=== PATIENT | female | born 1965 | race African-American/Black ===

== ENCOUNTER 2016-12-22 21:41 | Emergency (ER) | payer SELFPAY ==
[~2016-12-22] VITALS: Ht 160 cm; Wt 79.4 kg
[2016-12-22 22:29] LABS: BILIRUBIN,URINE NEGATIVE (NEG); GLUCOSE,URINE NEGATIVE (NEG); NITRITE,URINE NEGATIVE (NEG); PH,URINE 5.5; PROTEIN,URINE NEGATIVE (NEG-TRACE); UROBILINOGEN,URINE 0.2 mg/dL (0.2 mg/dL)
[2016-12-22] MEDS ORDERED: ONDANSETRON PF 4 MG/2 ML VIAL. IV ONE (22:30)
[2016-12-22] MEDS ORDERED: IV NORMAL SALINE 1000ML BAG 1,000 ML IV SCH (22:30)
[2016-12-22] MEDS: fentaNYL PF VIAL 100 MCG/2 ML VIAL IV PRN ×2 (22:30→23:17)
[2016-12-22] MEDS ORDERED: FAMOTIDINE 20 MG/2 ML VIAL IVP ONE (22:30)
[2016-12-22 22:36] LABS: BACTERIA,URINE FEW /HPF (0-FEW); RBC,URINE OCC /HPF (0-2); SQUAMOUS EPITHELIAL CELL,UR MOD /LPF
[2016-12-22 22:37] LABS: BASO # 0.1 x10^3/uL (0.0-0.2); BASO % 1 % (0-3); EOS % 3 % (0-3); LYMPH # 5.2 x10^3/uL (1.0-4.8); LYMPH % 41 % (24-48); MEAN CORPUSCULAR HEMOGLOBIN 29 pg (25-35); MEAN CORPUSCULAR HGB CONC 33 g/dL (31-37); MEAN CORPUSCULAR VOLUME 88 fL (79-100); MONO % 9 % (0-9); NEUT % 46 % (31-73); PLATELET COUNT 459 x10^3/uL (140-400); RED BLOOD COUNT 4.55 x10^6/uL (3.50-5.40); RED CELL DISTRIBUTION WIDTH 13.7 % (11.5-14.5); WHITE BLOOD COUNT 12.7 x10^3/uL (4.0-11.0)
[2016-12-22 22:51] LABS: CALCIUM 9.1 mg/dL (8.5-10.1); CREATININE 0.7 mg/dL (0.6-1.0); GFR 107.2; POTASSIUM 4.5 mmol/L (3.5-5.1)
[2016-12-22 22:57] LABS: ALBUMIN 3.6 g/dL (3.4-5.0); ALBUMIN/GLOBULIN RATIO 0.9 (1.0-1.7); TOTAL BILIRUBIN 0.4 mg/dL (0.2-1.0); TOTAL PROTEIN 7.5 g/dL (6.4-8.2)
[2016-12-22 23:02] VITALS: BP 147/72
[2016-12-22] MEDS ORDERED: NITR100C62 PO (23:05)
[2016-12-22] MEDS ORDERED: PHEN-318 PO (23:05)
--- NOTE | 2016-12-22 23:05 | PHYS DOC ---
Past Medical History Past Medical History: Asthma Additional Past Medical Histor: KIDNEY INFECTION; scoliosis Past Surgical History: Other Additional Past Surgical Histo: right wrist surgery; ovarian cyst; hernia, d & c Alcohol Use: Occasionally Drug Use: Cocaine Adult General Chief Complaint Chief Complaint: ABDOMINAL PAIN HPI HPI Patient is a 51 year old female who presents with complaint of lower abdominal pain for the past 2 weeks. Patient states that she has been having pain associated with urination. Patient states that she has had increased urinary frequency. Patient denies fevers, nausea, or vomiting. The patient states that her pain is 7 out of 10. Patient states that the pain feels sharp and cramping. The patient has not taken any medications help with symptoms at this time. The patient noted that she has had slight vaginal discharge but denies any recent sexual contact. Patient states that she is not concerned that she has a sexually transmitted infection. Patient has had no abnormal vaginal bleeding. Patient states that she has been having irregular menses and is currently not bleeding. Review of Systems Review of Systems Constitutional: Denies fever or chills [] Eyes: Denies change in visual acuity, redness, or eye pain [] HENT: Denies nasal congestion or sore throat [] Respiratory: Denies cough or shortness of breath [] Cardiovascular: Denies chest pain or edema [] GI: Lower abdominal pain, denies nausea, vomiting, bloody stools or diarrhea [] : Dysuria, foul-smelling urine [] Musculoskeletal: Denies back pain or joint pain [] Integument: Denies rash or skin lesions [] Neurologic: Denies headache, focal weakness or sensory changes [] Current Medications Current Medications Current Medications Medications (Trade) Dose Ordered Sig/Moni Start Time Stop Time Status Last Admin Dose Admin Famotidine (Pepcid) 20 mg 1X ONCE 12/22/16 22:30 12/22/16 22:31 DC 12/22/16 22:29 20 MG Fentanyl Citrate (Fentanyl 2ml Vial) 50 mcg PRN Q15MIN PRN 12/22/16 22:30 12/22/16 23:21 DC 12/22/16 23:17 50 MCG Nitrofurantoin Macrocrystals (Macrobid) 100 mg 1X ONCE 12/22/16 23:15 12/22/16 23:16 DC 12/22/16 23:17 100 MG Ondansetron HCl (Zofran) 4 mg 1X ONCE 12/22/16 22:30 12/22/16 22:31 DC 12/22/16 22:28 4 MG Sodium Chloride 1,000 ml @ 1,000 mls/hr Q1H 12/22/16 22:30 12/22/16 23:21 DC 12/22/16 22:33 1,000 MLS/HR Allergies Allergies Allergies Coded Allergies Type Severity Reaction Last Updated Verified No Known Drug Allergies 07/30/13 No Physical Exam Physical Exam Constitutional: Alert, afebrile, no acute distress. [] HENT: Normocephalic, atraumatic, bilateral external ears normal, oropharynx moist, no oral exudates, nose normal. [] Eyes: PERRLA, EOMI, conjunctiva normal, no discharge. [] Neck: Normal range of motion, no tenderness, supple, no stridor. [] Cardiovascular:Heart rate regular rhythm, no murmur [] Lungs & Thorax: Bilateral breath sounds clear to auscultation [] Abdomen: Bowel sounds normal, soft, minimal suprapubic tenderness to palpation, no guarding or rebound tenderness present, no masses, no pulsatile masses. [] Skin: Warm, dry, no erythema, no rash. [] Back: No tenderness, no CVA tenderness. [] Extremities: No tenderness, no cyanosis, no clubbing, ROM intact, no edema. [] Neurologic: Alert and oriented X 3, normal motor function, normal sensory function, no focal deficits noted. [] Current Patient Data Vital Signs Vital Signs Date Time Temp Pulse Resp B/P (MAP) Pulse Ox O2 Delivery O2 Flow Rate FiO2 12/22/16 22:30 16 100 Room Air 12/22/16 22:14 98.1 85 154/79 (104) 98.1 Lab Values Laboratory Tests Test 12/22/16 21:17 12/22/16 21:56 12/22/16 22:30 POC Urine HCG, Qualitative Hcg negative (Negative) Urine Collection Type Unknown Urine Color Yellow Urine Clarity Clear Urine pH 5.5 Urine Specific [place] 1.010 Urine Protein Negative mg/dL (NEG-TRACE) Urine Glucose (UA) Negative mg/dL (NEG) Urine Ketones (Stick) Negative mg/dL (NEG) Urine Blood Small (NEG) Urine Nitrite Negative (NEG) Urine Bilirubin Negative (NEG) Urine Urobilinogen Dipstick 0.2 mg/dL (0.2 mg/dL) Urine Leukocyte Esterase Moderate (NEG) Urine RBC Occ /HPF (0-2) Urine WBC 5-10 /HPF (0-4) Urine Squamous Epithelial Cells Mod /LPF Urine Bacteria Few /HPF (0-FEW) Urine Mucus Slight /LPF White Blood Count 12.7 x10^3/uL (4.0-11.0) H Red Blood Count 4.55 x10^6/uL (3.50-5.40) Hemoglobin 13.0 g/dL (12.0-15.5) Hematocrit 40.0 % (36.0-47.0) Mean Corpuscular Volume 88 fL (79-100) Mean Corpuscular Hemoglobin 29 pg (25-35) Mean Corpuscular Hemoglobin Concent 33 g/dL (31-37) Red Cell Distribution Width 13.7 % (11.5-14.5) Platelet Count 459 x10^3/uL (140-400) H Neutrophils (%) (Auto) 46 % (31-73) Lymphocytes (%) (Auto) 41 % (24-48) Monocytes (%) (Auto) 9 % (0-9) Eosinophils (%) (Auto) 3 % (0-3) Basophils (%) (Auto) 1 % (0-3) Neutrophils # (Auto) 5.8 x10^3uL (1.8-7.7) Lymphocytes # (Auto) 5.2 x10^3/uL (1.0-4.8) H Monocytes # (Auto) 1.1 x10^3/uL (0.0-1.1) Eosinophils # (Auto) 0.4 x10^3/uL (0.0-0.7) Basophils # (Auto) 0.1 x10^3/uL (0.0-0.2) Sodium Level 137 mmol/L (136-145) Potassium Level 4.5 mmol/L (3.5-5.1) Chloride Level 101 mmol/L (98-107) Carbon Dioxide Level 29 mmol/L (21-32) Anion Gap 7 (6-14) Blood Urea Nitrogen 13 mg/dL (7-20) Creatinine 0.7 mg/dL (0.6-1.0) Estimated GFR (Cockcroft-Gault) 107.2 BUN/Creatinine Ratio 19 (6-20) Glucose Level 99 mg/dL (70-99) Calcium Level 9.1 mg/dL (8.5-10.1) Total Bilirubin 0.4 mg/dL (0.2-1.0) Aspartate Amino Transferase (AST) 23 U/L (15-37) Alanine Aminotransferase (ALT) 34 U/L (14-59) Alkaline Phosphatase 120 U/L (46-116) H Total Protein 7.5 g/dL (6.4-8.2) Albumin 3.6 g/dL (3.4-5.0) Albumin/Globulin Ratio 0.9 (1.0-1.7) L Lipase 133 U/L (73-393) Laboratory Tests 12/22/16 22:30 Laboratory Tests 12/22/16 22:30 EKG EKG Not performed [] Radiology/Procedures Radiology/Procedures Not performed [] Course & Med Decision Making Course & Med Decision Making Pertinent Labs and Imaging studies reviewed. (See chart for details) Patient found have evidence urinary tract infection. Patient was treated with Macrobid in the emergency department. Patient will continue on Pyridium and Macrobid for treatment of urinary tract infection as outpatient. Advised follow- up in 3-5 days a primary doctor if symptoms are not improving and return to emergency department for any worsening symptoms. In agreement with treatment plan. Dragon Disclaimer Dragon Disclaimer This electronic medical record was generated, in whole or in part, using a voice recognition dictation system. Departure Departure Impression: Primary Impression: Urinary tract infection Disposition: HOME, SELF-CARE Condition: IMPROVED Referrals: NO PCP (PCP) Patient Instructions: Urinary Tract Infection Additional Instructions: Follow-up with primary doctor in the next 3-5 days for reevaluation. Return to the emergency department for any worsening symptoms. Scripts Phenazopyridine Hcl (PYRIDIUM) 200 Mg Tablet 200 MG PO TID, #6 TAB Prov: NEW PEREIRA MD 12/22/16 Nitrofurantoin Monohyd/M-Cryst (MACROBID 100 MG CAPSULE) 100 Mg Capsule 1 CAP PO BID, #14 CAP Prov: NEW PEREIRA MD 12/22/16 Problem Qualifiers Primary Impression: Urinary tract infection Urinary tract infection type: acute cystitis Hematuria presence: without hematuria Qualified Codes: N30.00 - Acute cystitis without hematuria NEW PEREIRA MD Dec 22, 2016 23:05
[2016-12-22] MEDS ORDERED: NITROFURANTOIN MONOHYD/M-CRYST 100 MG CAPSULE. PO ONE (23:15)
== END 2016-12-22 23:21 | disposition home or self-care (01) ==
LOC: ER 21:41
DX: N30.00 Acute cystitis without hematuria (principal); J45.909 Unspecified asthma, uncomplicated; F14.10 Cocaine abuse, uncomplicated
CPT/HCPCS: 36415; 80053; 81001; 81025; 83690; 85027; 87086; 96361; 96374; 96375; 96376; 99285; J2405; J3010; J7030; S0028

== ENCOUNTER 2017-04-02 23:16 | Emergency (ER) | payer SELFPAY ==
[~2017-04-02] VITALS: Ht 160 cm; Wt 79.4 kg
[~2017-04-02 23:16] MED LIST: NITR100C62 PO; PHEN-318 PO
[2017-04-02 23:33] VITALS: BP 154/85
[2017-04-02] MEDS ORDERED: SULF1TAB24 PO (23:48)
[2017-04-02] MEDS ORDERED: ACET-704 PO (23:48)
--- NOTE | 2017-04-02 23:48 | PHYS DOC ---
Past Medical History Past Medical History: Asthma, Other Additional Past Medical Histor: KIDNEY INFECTION; scoliosis Past Surgical History: Other Additional Past Surgical Histo: right wrist surgery; ovarian cyst; hernia, d & c Alcohol Use: Occasionally Drug Use: Cocaine Adult General Chief Complaint Chief Complaint: SKIN RASH/ABSCESS [facility] HPI Patient is a 51 year old [female presents to the emergency department with complaints of a vaginal abscess. She states she noticed it today. She states it has grown in size today. She has no other complaints. No vaginal discharge, no exposure to STD, no abdominal pain. She reports no fever. Review of Systems Review of Systems Constitutional: Denies fever or chills [] Eyes: Denies change in visual acuity, redness, or eye pain [] HENT: Denies nasal congestion or sore throat [] Respiratory: Denies cough or shortness of breath [] Cardiovascular: No additional information not addressed in HPI [] GI: Denies abdominal pain, nausea, vomiting, bloody stools or diarrhea [] : Denies dysuria or hematuria, complain of vaginal abscess [] Musculoskeletal: Denies back pain or joint pain [] Integument: Denies rash or skin lesions [] Neurologic: Denies headache, focal weakness or sensory changes [] Endocrine: Denies polyuria or polydipsia [] Allergies Allergies Allergies Coded Allergies Type Severity Reaction Last Updated Verified No Known Drug Allergies 07/30/13 No Physical Exam Physical Exam Constitutional: Well developed, well nourished, no acute distress, non-toxic appearance. [] HENT: Normocephalic, atraumatic, bilateral external ears normal, oropharynx moist, no oral exudates, nose normal. [] Eyes: PERRLA, EOMI, conjunctiva normal, no discharge. [] Neck: Normal range of motion, no tenderness, supple, no stridor. [] Cardiovascular:Heart rate regular rhythm, no murmur [] Lungs & Thorax: Bilateral breath sounds clear to auscultation [] Abdomen: Bowel sounds normal, soft, no tenderness, no masses, no pulsatile masses : Introitus, left side, 2 cm fluctuant area, mild erythema, tender to palpate. Remainder of genital exam unremarkable Skin: Warm, dry, no erythema, no rash. [] Back: No tenderness, no CVA tenderness. [] Extremities: No tenderness, no cyanosis, no clubbing, ROM intact, no edema. [] Neurologic: Alert and oriented X 3, normal motor function, normal sensory function, no focal deficits noted. [] Psychologic: Affect normal, judgement normal, mood normal. [] Current Patient Data Vital Signs Vital Signs Date Time Temp Pulse Resp B/P (MAP) Pulse Ox O2 Delivery O2 Flow Rate FiO2 04/02/17 23:33 98.1 55 18 154/85 (108) 100 Room Air 98.1 EKG EKG [] Radiology/Procedures Radiology/Procedures [] Course & Med Decision Making Course & Med Decision Making Pertinent Labs and Imaging studies reviewed. (See chart for details) []Abscess cleansed with Betadine, anesthetized with 1 mL of 2% lidocaine, #11 blade used to incise the abscess. Moderate amount of foul-smelling purulent discharge. Patient tolerated procedure well. Plan will be to discharge home on bactrim and Tylenol with codeine. Sitz baths 3 times a day. Follow-up with your primary care physician in 2-3 days, sooner proms arise. Return to the emergency Department for new symptoms or concerns or worsening of current condition. Dragon Disclaimer Dragon Disclaimer This electronic medical record was generated, in whole or in part, using a voice recognition dictation system. Departure Departure Impression: Primary Impression: Abscess of vagina Disposition: 01 HOME, SELF-CARE Condition: STABLE Referrals: NO PCP (PCP) [facility] [place] Patient Instructions: Abscess Scripts Acetaminophen With Codeine (TYLENOL WITH CODEINE #3 TABLET) 1 Each Tablet 1 TAB PO PRN Q6HRS Y for PAIN, #15 TAB Prov: ANSHU ERICKSON RAIL OPERATOR 04/02/17 Sulfamethoxazole/Trimethoprim (BACTRIM DS TABLET) 1 Each Tablet 1 TAB PO BID, #20 TAB Prov: ANSHU ERICKSON RAIL OPERATOR 04/02/17 ANSHU ERICKSON APRN Apr 02, 2017 23:48
== END 2017-04-02 23:55 | disposition home or self-care (01) ==
LOC: ER 23:16
DX: N76.0 Acute vaginitis (principal); J45.909 Unspecified asthma, uncomplicated; M41.9 Scoliosis, unspecified
CPT/HCPCS: 56405; 99284-25

== ENCOUNTER 2017-10-01 13:22 | Inpatient (IN) | payer SELFPAY ==
[2017-10-01 13:55] LABS: URINE HCG POC HCG NEGATIVE (Negative)
[2017-10-01 14:16] LABS: ADD MAN DIFF? NO
[2017-10-01 14:18] LABS: BASO # 0.1 x10^3/uL (0.0-0.2); BASO % 1 % (0-3); EOS # 0.3 x10^3/uL (0.0-0.7); EOS % 3 % (0-3); HEMATOCRIT 41.8 % (36.0-47.0); HEMOGLOBIN 13.7 g/dL (12.0-15.5); LYMPH # 3.8 x10^3/uL (1.0-4.8); LYMPH % 39 % (24-48); MEAN CORPUSCULAR HEMOGLOBIN 29 pg (25-35); MEAN CORPUSCULAR HGB CONC 33 g/dL (31-37); MEAN CORPUSCULAR VOLUME 89 fL (79-100); MONO # 0.8 x10^3/uL (0.0-1.1); MONO % 8 % (0-9); NEUT # 4.8 x10^3uL (1.8-7.7); NEUT % 49 % (31-73); PLATELET COUNT 478 x10^3/uL (140-400); RED CELL DISTRIBUTION WIDTH 13.9 % (11.5-14.5); WHITE BLOOD COUNT 9.7 x10^3/uL (4.0-11.0)
[2017-10-01 14:34] LABS: ANION GAP 10 (6-14); BLOOD UREA NITROGEN 15 mg/dL (7-20); BUN/CREATININE RATIO 17 (6-20); CARBON DIOXIDE 28 mmol/L (21-32); CHLORIDE 102 mmol/L (98-107); CREATININE 0.9 mg/dL (0.6-1.0); GFR 79.9; GLUCOSE 97 mg/dL (70-99); POTASSIUM 4.8 mmol/L (3.5-5.1); SODIUM 140 mmol/L (136-145)
[2017-10-01 14:41] LABS: ALBUMIN 3.8 g/dL (3.4-5.0); ALBUMIN/GLOBULIN RATIO 0.8 (1.0-1.7); ALK PHOS 145 U/L (46-116); ALT (SGPT) 41 U/L (14-59); AST (SGOT) 35 U/L (15-37); TOTAL BILIRUBIN 0.4 mg/dL (0.2-1.0); TOTAL PROTEIN 8.4 g/dL (6.4-8.2)
[2017-10-01 14:42] LABS: TROPONINI < 0.017 ng/mL (0.000-0.055)
[2017-10-01] MEDS ORDERED: ONDANSETRON PF 4 MG/2 ML VIAL. IV (16:00)
[2017-10-01] MEDS ORDERED: ACETAMINOPHEN 325 MG TABLET. PO (16:00)
[2017-10-01] MEDS: NITROGLYCERIN OINT 1 GM PACKET. TP (16:00)
[2017-10-01 16:15] LABS: BARBITURATES NEG (NEG); BENZODIAZEPINES NEG (NEG); CANNABINOIDS NEG (NEG); COCAINE NEG (NEG); METHADONE NEG (NEG); OPIATES NEG (NEG); PHENCYCLIDINE NEG (NEG)
[2017-10-01 16:17] LABS: AMPHETAMINE/METHAMPHETAMINE NEG (NEG); ETHANOL, URINE NEG (NEG)
[2017-10-01] MEDS: ASPIRIN CHEWABLE 81 MG TABLET. PO (16:31)
[2017-10-01 20:02] LABS: TROPONINI < 0.017 ng/mL (0.000-0.055)
[2017-10-01] MEDS: ENOXAPARIN 40 MG/0.4 ML SYRINGE. SQ (22:08)
[2017-10-01 23:30] LABS: TROPONINI < 0.017 ng/mL (0.000-0.055)
[2017-10-02] MEDS: NITROGLYCERIN SUBLINGUAL 0.4 MG BOTTLE OF 25. SL ×4 (08:14→19:10)
[2017-10-02 10:10] LABS: CHOLESTEROL 211 mg/dL (0-200); HDLC 53 mg/dL (40-60); LDLC 124 mg/dL (0-100); NON-HDL CHOLESTEROL 158 mg/dL (0-129); TRIGLYCERIDES 168 mg/dL (0-150); VLDLC 34 mg/dL (0-40)
[2017-10-02] MEDS: MORPHINE SULFATE 4 MG/ML DISP.SYRIN. IV (11:58)
[2017-10-02] MEDS ORDERED: ONDANSETRON PF 4 MG/2 ML VIAL. IV (12:45)
[2017-10-02] MEDS ORDERED: traMADol 50 MG TABLET PO (12:45)
[2017-10-02] MEDS ORDERED: ALBUTEROL SULFATE 2.5 MG/3 ML NEBU. NEB (12:45)
[2017-10-02] MEDS ORDERED: MORPHINE SULFATE 4 MG/ML DISP.SYRIN. IV (12:45)
[2017-10-02] MEDS ORDERED: hydrALAZINE 20 MG/ML VIAL. IVP (12:45)
[2017-10-02] MEDS ORDERED: DOCUSATE SODIUM 100 MG CAPSULE. PO (12:45)
[2017-10-02] MEDS: ACETAMINOPHEN 325 MG TABLET. PO (19:19)
[2017-10-02] MEDS: ENOXAPARIN 40 MG/0.4 ML SYRINGE. SQ (20:33)
[2017-10-02] MEDS: ATORVASTATIN CALCIUM 40 MG TABLET. PO (20:33)
[2017-10-02] MEDS: NITROGLYCERIN PREMIX 250 ML IV (20:35)
[2017-10-03 04:15] LABS: ADD MAN DIFF? NO
[2017-10-03 04:57] LABS: BASO # 0.1 x10^3/uL (0.0-0.2); BASO % 1 % (0-3); EOS # 0.5 x10^3/uL (0.0-0.7); EOS % 5 % (0-3); HEMATOCRIT 38.6 % (36.0-47.0); HEMOGLOBIN 12.8 g/dL (12.0-15.5); LYMPH # 5.3 x10^3/uL (1.0-4.8); LYMPH % 52 % (24-48); MEAN CORPUSCULAR HEMOGLOBIN 30 pg (25-35); MEAN CORPUSCULAR HGB CONC 33 g/dL (31-37); MEAN CORPUSCULAR VOLUME 89 fL (79-100); MONO # 0.9 x10^3/uL (0.0-1.1); MONO % 9 % (0-9); NEUT # 3.4 x10^3uL (1.8-7.7); NEUT % 34 % (31-73); PLATELET COUNT 453 x10^3/uL (140-400); RED BLOOD COUNT 4.34 x10^6/uL (3.50-5.40); RED CELL DISTRIBUTION WIDTH 14.1 % (11.5-14.5); WHITE BLOOD COUNT 10.1 x10^3/uL (4.0-11.0)
[2017-10-03 05:12] LABS: ANION GAP 9 (6-14); BLOOD UREA NITROGEN 11 mg/dL (7-20); CALCIUM 8.6 mg/dL (8.5-10.1); CARBON DIOXIDE 26 mmol/L (21-32); CHLORIDE 105 mmol/L (98-107); CREATININE 0.9 mg/dL (0.6-1.0); GFR 79.9; GLUCOSE 113 mg/dL (70-99); POTASSIUM 4.1 mmol/L (3.5-5.1); SODIUM 140 mmol/L (136-145)
[2017-10-03 05:31] LABS: THYROID STIM HORMONE (TSH) 1.852 uIU/mL (0.358-3.74)
[2017-10-03] MEDS: IV NORMAL SALINE 1000ML BAG 1,000 ML IV (07:00)
[2017-10-03] MEDS ORDERED: IOHEXOL 300 MG/ML 100ML VIAL. (07:07)
[2017-10-03] MEDS ORDERED: LIDOCAINE 2% 20 ML VIAL. (07:08)
[2017-10-03] MEDS ORDERED: fentaNYL PF VIAL 100 MCG/2 ML VIAL (07:47)
[2017-10-03] MEDS ORDERED: MIDAZOLAM HCL/PF 2 MG/2 ML VIAL. (07:48)
[2017-10-03] MEDS ORDERED: HEPARIN for IV BOLUS 10,000 UNIT/10 ML VIAL. (07:48)
[2017-10-03] MEDS ORDERED: VERAPAMIL 5 MG/2 ML VIAL. (07:48)
[2017-10-03] MEDS ORDERED: NITROGLYCERIN 200 MCG/2 ML SYRINGE FOR CATH/VASC LAB. (07:49)
[2017-10-03] MEDS: ASPIRIN ENTERIC COATED 81 MG TABLET.DR. PO (08:00)
[2017-10-03] MEDS ORDERED: CONTRAST GIVEN MC (08:30)
[2017-10-03] MEDS: NITROGLYCERIN 200 MCG/2 ML SYRINGE FOR CATH/VASC LAB. IART (08:51)
[2017-10-03] MEDS: LIDOCAINE 2% 20 ML VIAL. IJ (08:51)
[2017-10-03] MEDS: VERAPAMIL 5 MG/2 ML VIAL. IART (08:51)
[2017-10-03] MEDS: fentaNYL PF VIAL 100 MCG/2 ML VIAL IV (08:52)
[2017-10-03] MEDS: IOHEXOL 300 MG/ML 100ML VIAL. IART (08:52)
[2017-10-03] MEDS: MIDAZOLAM HCL/PF 2 MG/2 ML VIAL. IV (08:52)
[2017-10-03] MEDS: HEPARIN for IV BOLUS 10,000 UNIT/10 ML VIAL. IART (08:54)
[2017-10-03] MEDS ORDERED: 0.9 % SODIUM CHLORIDE 10 ML DISP.SYRIN. IV (10:45)
[2017-10-03] MEDS ORDERED: NITROGLYCERIN SUBLINGUAL 0.4 MG BOTTLE OF 25. SL (10:45)
[2017-10-03] MEDS: ACETAMINOPHEN 325 MG TABLET. PO (11:38)
== END 2017-10-03 17:15 | disposition home or self-care (01) | DRG 918 ==
LOC: ER 13:22 → 2 SOUTH 15:28
PROC: 4A023N7 Measurement of Cardiac Sampling and Pressure, Left Heart, Percutaneous Approach (ICD-10-PCS; principal; 2017-10-03)
PROC: B2151ZZ Fluoroscopy of Left Heart using Low Osmolar Contrast (ICD-10-PCS; 2017-10-03)
PROC: B2111ZZ Fluoroscopy of Multiple Coronary Arteries using Low Osmolar Contrast (ICD-10-PCS; 2017-10-03)
DX: T40.5X1A Poisoning by cocaine, accidental (unintentional), initial encounter (principal); I11.0 Hypertensive heart disease with heart failure; I50.9 Heart failure, unspecified; R07.89 Other chest pain; F14.10 Cocaine abuse, uncomplicated; E66.9 Obesity, unspecified; R07.9 Chest pain, unspecified; E78.5 Hyperlipidemia, unspecified; F17.210 Nicotine dependence, cigarettes, uncomplicated; J45.909 Unspecified asthma, uncomplicated; G56.00 Carpal tunnel syndrome, unspecified upper limb; M41.9 Scoliosis, unspecified; Z82.49 Family history of ischemic heart disease and other diseases of the circulatory system; Z68.32 Body mass index [BMI] 32.0-32.9, adult
CPT/HCPCS: 36415; 71045; 80048; 80053; 80061; 80307; 81025; 84443; 84484; 85025; 93005; 93017; 93350; 93458; 94760; 99152; 99153; 99285; 99285-25; C1769; C1771; C1892; J1644; J1650; J2250; J2270; J3010; J3490; Q9967

== ENCOUNTER 2018-04-25 11:56 | Emergency (ER) | payer SELFPAY ==
[~2018-04-25] VITALS: Ht 160 cm; Wt 79.4 kg
[~2018-04-25 11:56] MED LIST changes: +ACET-704 PO; +ASPI-612 PO; +ATOR40TA59 PO; +SULF1TAB24 PO
[2018-04-25 12:28] VITALS: BP 159/79
[2018-04-25] MEDS: IV NORMAL SALINE 1000ML BAG 1,000 ML IV ONE (12:30)
[2018-04-25 12:48] LABS: BASO # 0.1 x10^3/uL (0.0-0.2); BASO % 1 % (0-3); EOS # 0.3 x10^3/uL (0.0-0.7); EOS % 3 % (0-3); HEMATOCRIT 40.1 % (36.0-47.0); HEMOGLOBIN 13.6 g/dL (12.0-15.5); LYMPH # 4.1 x10^3/uL (1.0-4.8); LYMPH % 40 % (24-48); MEAN CORPUSCULAR HEMOGLOBIN 30 pg (25-35); MEAN CORPUSCULAR HGB CONC 34 g/dL (31-37); MEAN CORPUSCULAR VOLUME 88 fL (79-100); MONO # 0.6 x10^3/uL (0.0-1.1); MONO % 6 % (0-9); NEUT % 50 % (31-73); PLATELET COUNT 473 x10^3/uL (140-400); RED BLOOD COUNT 4.56 x10^6/uL (3.50-5.40); RED CELL DISTRIBUTION WIDTH 14.4 % (11.5-14.5); WHITE BLOOD COUNT 10.1 x10^3/uL (4.0-11.0)
[2018-04-25 12:49] LABS: BILIRUBIN,URINE NEGATIVE (NEG); CLARITY,URINE CLEAR; COLOR,URINE YELLOW; NITRITE,URINE POSITIVE (NEG); PH,URINE 5.5; PROTEIN,URINE NEGATIVE (NEG-TRACE); UROBILINOGEN,URINE 0.2 mg/dL (0.2 mg/dL)
[2018-04-25] MEDS: KETOROLAC 15 MG/ML VIAL. IV ONE (12:53)
[2018-04-25] MEDS: fentaNYL PF VIAL 100 MCG/2 ML VIAL IV ONE (12:54)
[2018-04-25 12:55] LABS: BACTERIA,URINE MANY /HPF (0-FEW); SQUAMOUS EPITHELIAL CELL,UR FEW /LPF
[2018-04-25 12:57] LABS: CALCIUM 9.6 mg/dL (8.5-10.1); GFR 70.5; POTASSIUM 3.8 mmol/L (3.5-5.1)
[2018-04-25 13:04] LABS: ALBUMIN 3.6 g/dL (3.4-5.0); ALBUMIN/GLOBULIN RATIO 0.8 (1.0-1.7); TOTAL BILIRUBIN 0.5 mg/dL (0.2-1.0); TOTAL PROTEIN 8.3 g/dL (6.4-8.2)
--- NOTE | 2018-04-25 13:05 | RAD ---
PQRS Compliance Statement: One or more of the following individualized dose reduction techniques were utilized for this examination: 1. Automated exposure control 2. Adjustment of the mA and/or kV according to patient size 3. Use of iterative reconstruction technique CT ABDOMEN PELVIS WO CONTRAST Clinical Indication: FLANK PAIN Comparison: CT abdomen and pelvis without contrast, July 30, 2013. Technique: Helical CT imaging of the abdomen and pelvis is performed without IV or oral contrast. Findings: Evaluation of solid organs and bowel is limited without oral and IV contrast, decreasing sensitivity for detection of pathology. Lung bases are clear. Cardiac size is normal. Gallbladder is contracted. Calcified granulomas in the liver and the spleen. The pancreas, adrenal glands, and abdominal aorta are normal. There is no renal, ureteral, or bladder calculus. No perinephric stranding or hydronephrosis. Stomach unremarkable. No dilated small bowel. The appendix is normal. Colon diverticulosis. No colon wall thickening. No abdominal adenopathy or free fluid. Urinary bladder is not well distended accentuating wall thickness. Uterus and ovaries unremarkable. Mild air in the vagina. No pelvic free fluid. DJD at the symphysis pubis. Unchanged moderate S-shaped thoracolumbar rotoscoliosis. IMPRESSION: 1. No acute abdominal or pelvic abnormality. 2. Colon diverticulosis without diverticulitis. Electronically signed by: Sumit Chamorro MD (04/25/2018 1:01 PM) [id number]
[2018-04-25] MEDS ORDERED: CEPH500C PO (13:33)
[2018-04-25] MEDS ORDERED: HYDR-971 PO (13:35)
--- NOTE | 2018-04-25 13:38 | PHYS DOC ---
Past Medical History Past Medical History: Other Additional Past Medical Histor: asthma Past Surgical History: No Surgical History Additional Past Surgical Histo: right wrist surgery; ovarian cyst; hernia, d & c Alcohol Use: Occasionally Drug Use: None Adult General Chief Complaint Chief Complaint: ABDOMINAL PAIN HPI HPI Patient is a 53 year old female presenting with chief complaint of left back pain as well as left upper quadrant pain described as sharp and dull for 24 hours really no urinary symptoms however she has had similar pain in the past when she has had urinary tract infection no fever positive nausea no vomiting no diarrhea she also has a rash in her groin and she was worried about. Review of Systems Review of Systems Constitutional: Denies fever Eyes: Denies change in visual acuity, redness, or eye pain [] HENT: Denies nasal congestion or sore throat [] Respiratory: Denies cough or shortness of breath [] Cardiovascular: No additional information not addressed in HPI [] GI: Denies abdominal pain, nausea, vomiting, bloody stools or diarrhea [] : Denies dysuria or hematuria [] Musculoskeletal: Integument: Neurologic: Denies headache, focal weakness or sensory changes [] E All other systems were reviewed and found to be within normal limits, except as documented in this note. Current Medications Current Medications Current Medications Medications (Trade) Dose Ordered Sig/Moni Start Time Stop Time Status Last Admin Dose Admin Fentanyl Citrate (Fentanyl 2ml Vial) 50 mcg 1X ONCE 04/25/18 12:30 04/25/18 12:32 DC 04/25/18 12:54 50 MCG Ketorolac Tromethamine (Toradol 15mg Vial) 15 mg 1X ONCE 04/25/18 12:30 04/25/18 12:32 DC 04/25/18 12:53 15 MG Sodium Chloride 1,000 ml @ 1,000 mls/hr 1X ONCE 04/25/18 12:30 04/25/18 13:29 DC 04/25/18 12:30 1,000 MLS/HR Allergies Allergies Allergies Coded Allergies Type Severity Reaction Last Updated Verified No Known Drug Allergies 07/30/13 No Physical Exam Physical Exam Constitutional: Well developed, well nourished, no acute distress, non-toxic appearance. [] HENT: Normocephalic, atraumatic, bilateral external ears normal, oropharynx moist, no oral exudates, nose normal. [] Eyes: PERRLA, EOMI, conjunctiva normal, no discharge. [] Neck: Normal range of motion, no tenderness, supple, no stridor. [] Cardiovascular:Heart rate regular rhythm, no murmur [] Lungs & Thorax: Bilateral breath sounds clear to auscultation [] Abdomen: Bowel sounds normal, soft, no reproducible tenderness, no masses, no pulsatile masses. [] Skin: Warm, dry, no erythema, no rash. [] Back: No tenderness, mild left CVA tenderness. [] Extremities: No tenderness, no cyanosis, no clubbing, ROM intact, no edema. [] Neurologic: Alert and oriented X 3, normal motor function, normal sensory function, no focal deficits noted. [] Psychologic: Affect normal, judgement normal, mood normal. [] Current Patient Data Vital Signs Vital Signs Date Time Temp Pulse Resp B/P (MAP) Pulse Ox O2 Delivery O2 Flow Rate FiO2 04/25/18 12:54 16 04/25/18 12:28 97.9 88 159/79 (105) 99 Room Air 99.0 97.9 Lab Values Laboratory Tests Test 04/25/18 12:10 04/25/18 12:40 Urine Collection Type Unknown Urine Color Yellow Urine Clarity Clear Urine pH 5.5 Urine Specific [place] 1.015 Urine Protein Negative mg/dL (NEG-TRACE) Urine Glucose (UA) Negative mg/dL (NEG) Urine Ketones (Stick) Negative mg/dL (NEG) Urine Blood Moderate (NEG) Urine Nitrite Positive (NEG) Urine Bilirubin Negative (NEG) Urine Urobilinogen Dipstick 0.2 mg/dL (0.2 mg/dL) Urine Leukocyte Esterase Moderate (NEG) Urine RBC 6-10 /HPF (0-2) Urine WBC 11-20 /HPF (0-4) Urine Squamous Epithelial Cells Few /LPF Urine Bacteria Many /HPF (0-FEW) White Blood Count 10.1 x10^3/uL (4.0-11.0) Red Blood Count 4.56 x10^6/uL (3.50-5.40) Hemoglobin 13.6 g/dL (12.0-15.5) Hematocrit 40.1 % (36.0-47.0) Mean Corpuscular Volume 88 fL (79-100) Mean Corpuscular Hemoglobin 30 pg (25-35) Mean Corpuscular Hemoglobin Concent 34 g/dL (31-37) Red Cell Distribution Width 14.4 % (11.5-14.5) Platelet Count 473 x10^3/uL (140-400) H Neutrophils (%) (Auto) 50 % (31-73) Lymphocytes (%) (Auto) 40 % (24-48) Monocytes (%) (Auto) 6 % (0-9) Eosinophils (%) (Auto) 3 % (0-3) Basophils (%) (Auto) 1 % (0-3) Neutrophils # (Auto) 5.0 x10^3uL (1.8-7.7) Lymphocytes # (Auto) 4.1 x10^3/uL (1.0-4.8) Monocytes # (Auto) 0.6 x10^3/uL (0.0-1.1) Eosinophils # (Auto) 0.3 x10^3/uL (0.0-0.7) Basophils # (Auto) 0.1 x10^3/uL (0.0-0.2) Maternal Serum HCG Beta Subunit 1 mIU/mL (0-5) Sodium Level 141 mmol/L (136-145) Potassium Level 3.8 mmol/L (3.5-5.1) Chloride Level 103 mmol/L (98-107) Carbon Dioxide Level 27 mmol/L (21-32) Anion Gap 11 (6-14) Blood Urea Nitrogen 14 mg/dL (7-20) Creatinine 1.0 mg/dL (0.6-1.0) Estimated GFR (Cockcroft-Gault) 70.5 BUN/Creatinine Ratio 14 (6-20) Glucose Level 141 mg/dL (70-99) H Calcium Level 9.6 mg/dL (8.5-10.1) Total Bilirubin 0.5 mg/dL (0.2-1.0) Aspartate Amino Transferase (AST) 22 U/L (15-37) Alanine Aminotransferase (ALT) 38 U/L (14-59) Alkaline Phosphatase 123 U/L (46-116) H Total Protein 8.3 g/dL (6.4-8.2) H Albumin 3.6 g/dL (3.4-5.0) Albumin/Globulin Ratio 0.8 (1.0-1.7) L Lipase 122 U/L (73-393) Laboratory Tests 04/25/18 12:40 Laboratory Tests 04/25/18 12:40 EKG EKG [] Radiology/Procedures Radiology/Procedures [] Impressions: IMPRESSION: 1. No acute abdominal or pelvic abnormality. 2. Colon diverticulosis without diverticulitis. Electronically signed by: Sumit De Souza MD (04/25/2018 1:01 PM) [id number] DICTATED and SIGNED BY: SUMIT DE SOUZA MD DATE: 04/25/18 1259 Course & Med Decision Making Course & Med Decision Making Pertinent Labs and Imaging studies reviewed. (See chart for details) 53 she felt with left flank pain found to have UTI abdomen nontender CT scan was negative acute She appears appropriate for outpatient management at this time return precautions were discussed noted the blood pressure advised follow-up in 1 month for that. Dragon Disclaimer Dragon Disclaimer This electronic medical record was generated, in whole or in part, using a voice recognition dictation system. Departure Departure Impression: Primary Impression: Urinary tract infection Additional Impression: Elevated blood pressure reading Disposition: HOME, SELF-CARE Condition: STABLE Referrals: NO PCP (PCP) Patient Instructions: Urinary Tract Infection, Tkpy-[id number] Scripts Nystatin (NYSTATIN) 15 Gm Oint...g. 1 EDIN TP TID, #15 GM 1 Refill Prov: LISBET CASTANEDA MD 04/25/18 Hydrocodone/Apap 5-325 (NORCO 5-325 TABLET) 1 Each Tablet 1-2 EACH PO PRN Q6HRS PRN for PAIN, #15 as needed for pain Prov: LISBET CASTANEDA MD 04/25/18 Cephalexin (CEPHALEXIN) 500 Mg Capsule 1 CAP PO QID, #40 CAP Prov: LISBET CASTANEDA MD 04/25/18 Problem Qualifiers LISBET CASTANEDA MD Apr 25, 2018 13:38
[2018-04-25] MEDS ORDERED: NYST15OI TP (13:39)
== END 2018-04-25 13:45 | disposition home or self-care (01) ==
LOC: ER 11:56
DX: N39.0 Urinary tract infection, site not specified (principal); R10.12 Left upper quadrant pain; R03.0 Elevated blood-pressure reading, without diagnosis of hypertension; M54.9 Dorsalgia, unspecified; K57.30 Diverticulosis of large intestine without perforation or abscess without bleeding; J45.909 Unspecified asthma, uncomplicated
CPT/HCPCS: 36415; 74176; 80053; 81001; 83690; 84702; 85025; 96374; 96375; 99285; J1885; J3010; J7030; 87086; 87186

== ENCOUNTER 2018-10-21 11:45 | Emergency (ER) | payer SELFPAY ==
[~2018-10-21 11:45] MED LIST changes: +CEPH500C PO; +HYDR-3164 PO; +NYST15OI TP
[2018-10-22 00:13] LABS: BACTERIA,URINE MANY /HPF (0-FEW); BILIRUBIN,URINE NEGATIVE (NEG); CLARITY,URINE CLEAR; COLOR,URINE STRAW; NITRITE,URINE POSITIVE (NEG); PH,URINE 5.5; PROTEIN,URINE NEGATIVE (NEG-TRACE); RBC,URINE OCC /HPF (0-2); SQUAMOUS EPITHELIAL CELL,UR MOD /LPF; UROBILINOGEN,URINE 0.2 mg/dL (0.2 mg/dL)
== END 2018-10-21 15:00 | disposition home or self-care (01) ==
LOC: ER 11:45
DX: M79.671 Pain in right foot (principal); R00.2 Palpitations; R21 Rash and other nonspecific skin eruption; R51 Headache; R35.0 Frequency of micturition; R30.0 Dysuria; J45.909 Unspecified asthma, uncomplicated
CPT/HCPCS: 81001; 87086; 87186; 99283; 99284

== ENCOUNTER 2018-11-05 08:38 | Emergency (ER) | payer SELFPAY ==
[~2018-11-05] VITALS: Ht 160 cm; Wt 83.9 kg
[2018-11-05 08:40] VITALS: BP 179/90
[2018-11-05] MEDS ORDERED: NAPROXEN 500 MG TABLET PO STA (08:56)
[2018-11-05] MEDS ORDERED: HYDROcodone/APAP 5/325MG 1 TAB TABLET PO ONE (09:00)
[2018-11-05] MEDS ORDERED: predniSONE 10 MG TABLET PO ONE (09:00)
--- NOTE | 2018-11-05 09:02 | PHYS DOC ---
Past Medical History Past Medical History: Other Additional Past Medical Histor: asthma (JOEL TOVAR APRN) Past Surgical History: No Surgical History Additional Past Surgical Histo: right wrist surgery; ovarian cyst; hernia, d & c (JOEL TOVAR APRN) Alcohol Use: Occasionally Drug Use: None (JOEL TOVAR APRN) Adult General Chief Complaint Chief Complaint: LOWER EXT PAIN HPI HPI Patient is a 53 year old female who presents with 8 out of 10 intermittent sharp to the back of the right foot pain for 2 weeks. No known injury. Pain worse on touching to the back of the foot, having shoes on. Patient denies anything specific in relieving her pain. She states she was seen in the ED at the end of September and was treated for UTI with cephalexin. Denies any UTI sym ptoms. (JOEL TOVAR APRN) Review of Systems Review of Systems Constitutional: Denies fever or chills [] Musculoskeletal: Denies back pain or joint pain [] Integument: Reports right foot pain Neurologic: Denies headache, focal weakness or sensory changes [] All other systems were reviewed and found to be within normal limits, except as documented in this note. (JOEL TOVAR APRN) Current Medications Current Medications Current Medications Medications (Trade) Dose Ordered Sig/Moni Start Time Stop Time Status Last Admin Dose Admin Acetaminophen/ Hydrocodone Bitart (Lortab 5/325) 1 tab 1X ONCE 11/05/18 09:00 11/05/18 09:01 DC 11/05/18 09:04 1 TAB Naproxen (Naprosyn) 500 mg 1X STAT 11/05/18 08:56 11/05/18 08:59 DC 11/05/18 09:05 500 MG Prednisone (Prednisone) 50 mg 1X ONCE 11/05/18 09:00 11/05/18 09:01 DC 11/05/18 09:04 50 MG (JUAN BENSON DO) Allergies Allergies Allergies Coded Allergies Type Severity Reaction Last Updated Verified No Known Drug Allergies 07/30/13 No (JUAN BENSON DO) Physical Exam Physical Exam Constitutional: Well developed, well nourished, no acute distress, non-toxic appearance. [] Skin: Warm, dry, no erythema, no rash. [] Back: No tenderness, no CVA tenderness. [] Extremities: Right foot with no obvious deformity swelling on the back of the foot. Tenderness on touching the back of her foot. Full range of motion to the right foot and toes. No navicular bone tenderness, no tenderness on the base of the fifth metatarsal of the right foot. +2 right pedal pulses. Negative Homans sign to the right lower extremity. Adequate sensation to the right lower extremity. Neurologic: Alert and oriented X 3, normal motor function, normal sensory function, no focal deficits noted. [] Psychologic: Affect normal, judgement normal, mood normal. [] (JOEL TOVAR APRN) Current Patient Data Vital Signs Vital Signs Date Time Temp Pulse Resp B/P (MAP) Pulse Ox O2 Delivery O2 Flow Rate FiO2 11/05/18 08:40 97.7 77 18 179/90 (119) 98 Room Air 97.7 (JUAN BENSON DO) EKG EKG [] (JOEL TOVAR APRN) Radiology/Procedures Radiology/Procedures []PROCEDURE: ANKLE RIGHT 3V Three-view right ankle and three-view right foot dated 11/05/2018. No comparison available. Clinical data indication: Pain after injury. FINDINGS: 3 views of right ankle show normal bony alignment. No displaced fracture. No acute osseous or articular abnormality. The talar dome is intact. 3 views of the right foot show mild soft tissue swelling. Bony alignment is anatomic. No displaced fracture. No acute osseous or articular abnormality. IMPRESSION: Mild soft tissue swelling with no evidence of underlying acute bony abnormality. Electronically signed by: Juan Garcia MD (11/05/2018 9:23 AM) [facility] DICTATED and SIGNED BY: JUAN GARCIA MD DATE: 11/05/18 0923 (JOEL TOVAR APRN) Course & Med Decision Making Course & Med Decision Making Pertinent Labs and Imaging studies reviewed. (See chart for details) This is a 53-year-old female patient presenting to the ED today with right foot pain, known injury. Right foot and right ankle x-rays are negative for any acute findings. Patient was discharged to home with diclofenac, provided orthopedic doctor for follow-up. Also encouraged to get better insoles for her shoes. Also recommended padding the back of her shoes. Ice elevation recommended. (JOEL TOVAR APRN) Dragon Disclaimer Dragon Disclaimer This electronic medical record was generated, in whole or in part, using a voice recognition dictation system. (JOEL TOVAR APRN) Departure Departure Impression: Primary Impression: Right foot pain Disposition: HOME, SELF-CARE Condition: STABLE Referrals: NO PCP (PCP) NHUNG OLIVARES MD follow up in 1 week Patient Instructions: Musculoskeletal Pain Additional Instructions: You were evaluated in the emergency room, your right foot and right ankle x-rays are negative. Consider getting comfortable insoles for your issues, also consider padding the backside of your shoes for comfort. Take the prescribed medications as ordered. Ice elevate the extremity. Follow-up with the provided orthopedic doctor in the next 1-2 weeks. Scripts Diclofenac Sodium (DICLOFENAC SODIUM) 50 Mg Tablet.dr 1 TAB PO BID, #20 TAB 0 Refills Prov: JOEL TOVAR APRN 11/05/18 Attending Signature Attending Signature I have reviewed the PA/STAFF REPORTER's note and plan of care. I was available for consultation as needed during the patient's visit in the emergency department. I agree with the clinical impression, plan, and disposition. (JUAN BENSON DO) JOEL TOVAR APRN November 05, 2018 09:02 JUAN BENSON DO November 07, 2018 13:44
--- NOTE | 2018-11-05 09:26 | RAD ---
Three-view right ankle and three-view right foot dated 11/05/2018. No comparison available. Clinical data indication: Pain after injury. FINDINGS: 3 views of right ankle show normal bony alignment. No displaced fracture. No acute osseous or articular abnormality. The talar dome is intact. 3 views of the right foot show mild soft tissue swelling. Bony alignment is anatomic. No displaced fracture. No acute osseous or articular abnormality. IMPRESSION: Mild soft tissue swelling with no evidence of underlying acute bony abnormality. Electronically signed by: Juan Garcia MD (11/05/2018 9:23 AM) [facility]
--- NOTE | 2018-11-05 09:26 | RAD ---
Three-view right ankle and three-view right foot dated 11/05/2018. No comparison available. Clinical data indication: Pain after injury. FINDINGS: 3 views of right ankle show normal bony alignment. No displaced fracture. No acute osseous or articular abnormality. The talar dome is intact. 3 views of the right foot show mild soft tissue swelling. Bony alignment is anatomic. No displaced fracture. No acute osseous or articular abnormality. IMPRESSION: Mild soft tissue swelling with no evidence of underlying acute bony abnormality. Electronically signed by: Juan Garcia MD (11/05/2018 9:23 AM) [facility]
[2018-11-05] MEDS ORDERED: DICL50TA4 PO (09:32)
== END 2018-11-05 09:49 | disposition home or self-care (01) ==
LOC: ER 08:38
DX: M79.671 Pain in right foot (principal); J45.909 Unspecified asthma, uncomplicated; M25.571 Pain in right ankle and joints of right foot
CPT/HCPCS: 73610; 73630; 99284; J7512

== ENCOUNTER 2019-04-03 15:57 | Emergency (ER) | payer SELFPAY ==
[~2019-04-03] VITALS: Ht 160 cm; Wt 81.6 kg
[~2019-04-03 15:57] MED LIST changes: +DICL50TA4 PO
[2019-04-03] MEDS ORDERED: KETOROLAC 15 MG/ML VIAL. IV STA (16:42)
[2019-04-03] MEDS ORDERED: IV NORMAL SALINE 1000ML BAG 1,000 ML IV ONE (16:45)
[2019-04-03] MEDS ORDERED: MORPHINE SULFATE 4 MG/ML VIAL. IV ONE (16:45)
--- NOTE | 2019-04-03 16:50 | PHYS DOC ---
Past Medical History Past Medical History: Asthma, High Cholesterol (ANALILIA NEGRON APRN) Past Surgical History: Other Additional Past Surgical Histo: right wrist surgery; ovarian cyst; hernia, d & c (ANALILIA NEGRON APRN) Alcohol Use: Occasionally Drug Use: None (ANALILIA NEGRON APRN) Attending Signature I have participated in the care of this patient and I have reviewed and agree with all pertinent clinical information above including history, exam, and recommendations. (RODOLFO GIMENEZ MD) Adult General Chief Complaint Chief Complaint: BACK PAIN OR INJURY HPI HPI Patient is a 53 year old female that presents with left flank pain that started today. Patient states her pain is 10 out of 10 in severity and sharp, the patient states that she is also been having urinary urgency. Denies fever. (ANALILIA NEGRON APRN) Review of Systems Review of Systems Constitutional: Denies fever or chills [] Eyes: Denies change in visual acuity, redness, or eye pain [] HENT: Denies nasal congestion or sore throat [] Respiratory: Denies cough or shortness of breath [] Cardiovascular: No additional information not addressed in HPI [] GI: Reports L flank pain, nausea, Denies vomiting, bloody stools or diarrhea [] : Reports urgency. Musculoskeletal: Reports L sided back pain. Integument: Denies rash or skin lesions [] Neurologic: Denies headache, focal weakness or sensory changes [] Endocrine: Denies polyuria or polydipsia [] Complete systems were reviewed and found to be within normal limits, except as documented in this note. (AANLILIA NEGRON APRN) Current Medications Current Medications Current Medications Medications (Trade) Dose Ordered Sig/Moni Start Time Stop Time Status Last Admin Dose Admin Ketorolac Tromethamine (Toradol 15mg Vial) 10 mg 1X STAT 04/03/19 16:42 04/03/19 16:43 DC 04/03/19 17:10 10 MG Morphine Sulfate (Morphine Sulfate) 4 mg 1X ONCE 04/03/19 16:45 04/03/19 16:46 DC 04/03/19 18:42 4 MG Ondansetron HCl (Zofran) 4 mg 1X ONCE 04/03/19 17:00 04/03/19 17:01 DC 04/03/19 17:10 4 MG Sodium Chloride 1,000 ml @ 1,000 mls/hr 1X ONCE 04/03/19 16:45 04/03/19 17:44 DC 04/03/19 17:10 1,000 MLS/HR (RODOLFO GIMENEZ MD) Allergies Allergies Allergies Coded Allergies Type Severity Reaction Last Updated Verified No Known Drug Allergies 07/30/13 No (RODOLFO GIMENEZ MD) Physical Exam Physical Exam Constitutional: Well developed, well nourished, no acute distress, non-toxic appearance. [] HENT: Normocephalic, atraumatic, bilateral external ears normal, oropharynx moist, no oral exudates, nose normal. [] Eyes: PERRLA, EOMI, conjunctiva normal, no discharge. [] Neck: Normal range of motion, no tenderness, supple, no stridor. [] Cardiovascular:Heart rate regular rhythm, no murmur [] Lungs & Thorax: Bilateral breath sounds clear to auscultation [] Abdomen: Bowel sounds normal, soft, L flank pain, no masses, no pulsatile daisy s. [] Skin: Warm, dry, no erythema, no rash. [] Back: Has L CVA tenderness. ] Extremities: No tenderness, no cyanosis, no clubbing, ROM intact, no edema. [] Neurologic: Alert and oriented X 3, normal motor function, normal sensory function, no focal deficits noted. [] Psychologic: Affect normal, judgement normal, mood normal. [] (ANALILIA NEGRON APRN) Current Patient Data Vital Signs Vital Signs Date Time Temp Pulse Resp B/P (MAP) Pulse Ox O2 Delivery O2 Flow Rate FiO2 04/03/19 18:55 77 14 152/86 (108) 98 Room Air 04/03/19 16:44 98.1 98.1 (RODOLFO GIMENEZ MD) Lab Values Laboratory Tests Test 04/03/19 17:56 04/03/19 17:59 Urine Color Yellow Urine Clarity Clear Urine pH 5.5 Urine Specific [place] 1.015 Urine Protein Negative mg/dL (NEG-TRACE) Urine Glucose (UA) Negative mg/dL (NEG) Urine Ketones (Stick) Negative mg/dL (NEG) Urine Blood Moderate (NEG) Urine Nitrite Negative (NEG) Urine Bilirubin Negative (NEG) Urine Urobilinogen Dipstick 0.2 mg/dL (0.2 mg/dL) Urine Leukocyte Esterase Negative (NEG) Urine RBC Occ /HPF (0-2) Urine WBC 1-4 /HPF (0-4) Urine Squamous Epithelial Cells Occ /LPF Urine Bacteria Few /HPF (0-FEW) Urine Mucus Mod /LPF White Blood Count 12.0 x10^3/uL (4.0-11.0) H Red Blood Count 4.56 x10^6/uL (3.50-5.40) Hemoglobin 13.5 g/dL (12.0-15.5) Hematocrit 40.8 % (36.0-47.0) Mean Corpuscular Volume 89 fL (79-100) Mean Corpuscular Hemoglobin 30 pg (25-35) Mean Corpuscular Hemoglobin Concent 33 g/dL (31-37) Red Cell Distribution Width 13.8 % (11.5-14.5) Platelet Count 419 x10^3/uL (140-400) H Neutrophils (%) (Auto) 51 % (31-73) Lymphocytes (%) (Auto) 39 % (24-48) Monocytes (%) (Auto) 6 % (0-9) Eosinophils (%) (Auto) 3 % (0-3) Basophils (%) (Auto) 1 % (0-3) Neutrophils # (Auto) 6.1 x10^3/uL (1.8-7.7) Lymphocytes # (Auto) 4.7 x10^3/uL (1.0-4.8) Monocytes # (Auto) 0.7 x10^3/uL (0.0-1.1) Eosinophils # (Auto) 0.4 x10^3/uL (0.0-0.7) Basophils # (Auto) 0.1 x10^3/uL (0.0-0.2) Sodium Level 140 mmol/L (136-145) Potassium Level 4.2 mmol/L (3.5-5.1) Chloride Level 103 mmol/L (98-107) Carbon Dioxide Level 26 mmol/L (21-32) Anion Gap 11 (6-14) Blood Urea Nitrogen 9 mg/dL (7-20) Creatinine 0.8 mg/dL (0.6-1.0) Estimated GFR (Cockcroft-Gault) 91.1 BUN/Creatinine Ratio 11 (6-20) Glucose Level 88 mg/dL (70-99) Calcium Level 9.4 mg/dL (8.5-10.1) Total Bilirubin 0.5 mg/dL (0.2-1.0) Aspartate Amino Transferase (AST) 22 U/L (15-37) Alanine Aminotransferase (ALT) 24 U/L (14-59) Alkaline Phosphatase 100 U/L (46-116) Total Protein 7.9 g/dL (6.4-8.2) Albumin 3.6 g/dL (3.4-5.0) Albumin/Globulin Ratio 0.8 (1.0-1.7) L Lipase 93 U/L (73-393) Laboratory Tests 04/03/19 17:59 Laboratory Tests 04/03/19 17:59 (RODOLFO GIMENEZ MD) Lab Values Laboratory Tests Test 04/03/19 17:56 04/03/19 17:59 Urine Color Yellow Urine Clarity Clear Urine pH 5.5 Urine Specific [place] 1.015 Urine Protein Negative mg/dL (NEG-TRACE) Urine Glucose (UA) Negative mg/dL (NEG) Urine Ketones (Stick) Negative mg/dL (NEG) Urine Blood Moderate (NEG) Urine Nitrite Negative (NEG) Urine Bilirubin Negative (NEG) Urine Urobilinogen Dipstick 0.2 mg/dL (0.2 mg/dL) Urine Leukocyte Esterase Negative (NEG) Urine RBC Occ /HPF (0-2) Urine WBC 1-4 /HPF (0-4) Urine Squamous Epithelial Cells Occ /LPF Urine Bacteria Few /HPF (0-FEW) Urine Mucus Mod /LPF White Blood Count 12.0 x10^3/uL (4.0-11.0) H Red Blood Count 4.56 x10^6/uL (3.50-5.40) Hemoglobin 13.5 g/dL (12.0-15.5) Hematocrit 40.8 % (36.0-47.0) Mean Corpuscular Volume 89 fL (79-100) Mean Corpuscular Hemoglobin 30 pg (25-35) Mean Corpuscular Hemoglobin Concent 33 g/dL (31-37) Red Cell Distribution Width 13.8 % (11.5-14.5) Platelet Count 419 x10^3/uL (140-400) H Neutrophils (%) (Auto) 51 % (31-73) Lymphocytes (%) (Auto) 39 % (24-48) Monocytes (%) (Auto) 6 % (0-9) Eosinophils (%) (Auto) 3 % (0-3) Basophils (%) (Auto) 1 % (0-3) Neutrophils # (Auto) 6.1 x10^3/uL (1.8-7.7) Lymphocytes # (Auto) 4.7 x10^3/uL (1.0-4.8) Monocytes # (Auto) 0.7 x10^3/uL (0.0-1.1) Eosinophils # (Auto) 0.4 x10^3/uL (0.0-0.7) Basophils # (Auto) 0.1 x10^3/uL (0.0-0.2) Sodium Level 140 mmol/L (136-145) Potassium Level 4.2 mmol/L (3.5-5.1) Chloride Level 103 mmol/L (98-107) Carbon Dioxide Level 26 mmol/L (21-32) Anion Gap 11 (6-14) Blood Urea Nitrogen 9 mg/dL (7-20) Creatinine 0.8 mg/dL (0.6-1.0) Estimated GFR (Cockcroft-Gault) 91.1 BUN/Creatinine Ratio 11 (6-20) Glucose Level 88 mg/dL (70-99) Calcium Level 9.4 mg/dL (8.5-10.1) Total Bilirubin 0.5 mg/dL (0.2-1.0) Aspartate Amino Transferase (AST) 22 U/L (15-37) Alanine Aminotransferase (ALT) 24 U/L (14-59) Alkaline Phosphatase 100 U/L (46-116) Total Protein 7.9 g/dL (6.4-8.2) Albumin 3.6 g/dL (3.4-5.0) Albumin/Globulin Ratio 0.8 (1.0-1.7) L Lipase 93 U/L (73-393) Laboratory Tests 04/03/19 17:59 Laboratory Tests 04/03/19 17:59 (ANALILIA NEGRON APRN) EKG EKG [] (ANALILIA NEGRON APRN) Radiology/Procedures Radiology/Procedures [][address] [place] [address] IMAGING REPORT Signed PATIENT: MARY ANNE ALVARADO LACCOUNT: [id number] : 1965 LOCATION: ER AGE: 53 SEX: F EXAM STATUS: REG ER ORD. PHYSICIAN: ANALILIA NEGRON APRN REASON: L flank pain PROCEDURE: CT ABDOMEN PELVIS WO CONTRAST Exam: CT abdomen and pelvis without contrast INDICATION: Left flank pain TECHNIQUE: Sequential axial images through the abdomen and pelvis obtained without IV contrast. Sagittal and coronal reformatted images were reconstructed from the axial data and reviewed. Comparisons: 04/25/2018 FINDINGS: Heart size is normal. No pericardial effusion. Visualized lung bases are clear. No pleural effusion. Liver, spleen, pancreas, gallbladder and adrenals are unremarkable. No perinephric inflammation or hydronephrosis. No renal or ureteral calculi are identified. Bladder is decompressed and not well evaluated. Uterus is not enlarged. No abnormal adnexal mass. A few scattered diverticula noted predominantly within the descending and sigmoid colon without evidence of acute diverticulitis. Appendix is normal. No free intra-abdominal air or fluid. No obstruction. Abdominal aorta has a normal course and caliber. Abdominal vasculature is patent. No enlarged abdominal lymph nodes are identified. No suspicious osseous lesions or acute fractures. IMPRESSION: No renal or ureteral calculi. No evidence for obstructive uropathy. Exposure: One or more of the following in the visualized dose reduction techniques were utilized for this examination: 1. Automated exposure control 2. Adjustment of the MA and/or KV according to patient size 3. Use of iterative of reconstructive technique Electronically signed by: Duarte Stanford MD (04/03/2019 5:59 PM) [facility] DICTATED and SIGNED BY: DUARTE STANFORD MD DATE: 04/03/19 1759 (ANALILIA NEGRON APRN) Course & Med Decision Making Course & Med Decision Making Pertinent Labs and Imaging studies reviewed. (See chart for details) Will get labs, CT, UA, and give supportive care. Labs are unremarkable with the exception of hematuria and WBC that is slightly elevated likely from inflammation. CT is unremarkable. Discussed with patient that there is blood in her urine and we do not know the cause. Will have her follow up with PCP or OB to have urine rechecked in 2 weeks. Discussed that I do not know the reason for flank pain. Will prescribe [place] and Zofran. (ANALILIA NEGRON APRN) Dragon Disclaimer Dragon Disclaimer This electronic medical record was generated, in whole or in part, using a voice recognition dictation system. (ANALILIA NEGRON APRN) Departure Departure Impression: Primary Impression: Flank pain Additional Impression: Hematuria Disposition: 01 HOME, SELF-CARE Condition: STABLE Referrals: NO PCP (PCP) LEONEL GREEN MD Patient Instructions: Flank Pain, Hematuria, Adult Additional Instructions: Thank you for visiting [facility]. We appreciate you trusting us with your care. If any additional problems come up don't hesitate to return to visit us. Please follow up with your primary care provider so they can plan additional care if needed and know about the problem that you had. If symptoms worsen come back to the Emergency Department. Any concerning symptoms that start such as chest pain, shortness of air, weakness or numbness on one side of the body, running high fevers or any other concerning symptoms return to the ER. Please follow up in 2 weeks to have urine rechecked for blood in urine. Please follow up with your primary care doctor and [facility]. Please fill your medications at any pharmacy and follow the prescription instructions. Scripts Hydrocodone/Apap 5-325 (NORCO 5-325 TABLET) 1 Each Tablet 1 TAB PO PRN Q6HRS PRN for PAIN for 3 Days, #10 TAB 0 Refills Prov: ANALILIA NEGRON APRN 04/03/19 Ondansetron (ONDANSETRON ODT) 4 Mg Tab.rapdis 1 TAB PO PRN Q6-8HRS PRN for NAUSEA, #16 TAB Prov: ANALILIA NEGRON APRN 04/03/19 Problem Qualifiers Additional Impression: Hematuria Hematuria type: unspecified type Qualified Codes: R31.9 - Hematuria, unspecified ANALILIA NEGRON APRN Apr 03, 2019 16:50 RODOLFO GIMENEZ MD Apr 04, 2019 09:39
[2019-04-03] MEDS ORDERED: ONDANSETRON PF 4 MG/2 ML VIAL. IV ONE (17:00)
--- NOTE | 2019-04-03 18:02 | RAD ---
Exam: CT abdomen and pelvis without contrast INDICATION: Left flank pain TECHNIQUE: Sequential axial images through the abdomen and pelvis obtained without IV contrast. Sagittal and coronal reformatted images were reconstructed from the axial data and reviewed. Comparisons: 04/25/2018 FINDINGS: Heart size is normal. No pericardial effusion. Visualized lung bases are clear. No pleural effusion. Liver, spleen, pancreas, gallbladder and adrenals are unremarkable. No perinephric inflammation or hydronephrosis. No renal or ureteral calculi are identified. Bladder is decompressed and not well evaluated. Uterus is not enlarged. No abnormal adnexal mass. A few scattered diverticula noted predominantly within the descending and sigmoid colon without evidence of acute diverticulitis. Appendix is normal. No free intra-abdominal air or fluid. No obstruction. Abdominal aorta has a normal course and caliber. Abdominal vasculature is patent. No enlarged abdominal lymph nodes are identified. No suspicious osseous lesions or acute fractures. IMPRESSION: No renal or ureteral calculi. No evidence for obstructive uropathy. Exposure: One or more of the following in the visualized dose reduction techniques were utilized for this examination: 1. Automated exposure control 2. Adjustment of the MA and/or KV according to patient size 3. Use of iterative of reconstructive technique Electronically signed by: Duarte Acuna MD (04/03/2019 5:59 PM) [facility]
[2019-04-03 18:14] LABS: BASO # 0.1 x10^3/uL (0.0-0.2); BASO % 1 % (0-3); EOS # 0.4 x10^3/uL (0.0-0.7); EOS % 3 % (0-3); HEMATOCRIT 40.8 % (36.0-47.0); HEMOGLOBIN 13.5 g/dL (12.0-15.5); LYMPH # 4.7 x10^3/uL (1.0-4.8); LYMPH % 39 % (24-48); MEAN CORPUSCULAR HEMOGLOBIN 30 pg (25-35); MEAN CORPUSCULAR HGB CONC 33 g/dL (31-37); MEAN CORPUSCULAR VOLUME 89 fL (79-100); MONO # 0.7 x10^3/uL (0.0-1.1); MONO % 6 % (0-9); NEUT # 6.1 x10^3/uL (1.8-7.7); NEUT % 51 % (31-73); PLATELET COUNT 419 x10^3/uL (140-400); RED BLOOD COUNT 4.56 x10^6/uL (3.50-5.40); RED CELL DISTRIBUTION WIDTH 13.8 % (11.5-14.5)
[2019-04-03 18:25] LABS: CALCIUM 9.4 mg/dL (8.5-10.1); CREATININE 0.8 mg/dL (0.6-1.0); GFR 91.1; POTASSIUM 4.2 mmol/L (3.5-5.1)
[2019-04-03 18:32] LABS: BILIRUBIN,URINE NEGATIVE (NEG); CLARITY,URINE CLEAR; COLOR,URINE YELLOW; NITRITE,URINE NEGATIVE (NEG); PH,URINE 5.5; PROTEIN,URINE NEGATIVE (NEG-TRACE); UROBILINOGEN,URINE 0.2 mg/dL (0.2 mg/dL)
[2019-04-03 18:33] LABS: ALBUMIN 3.6 g/dL (3.4-5.0); ALBUMIN/GLOBULIN RATIO 0.8 (1.0-1.7); TOTAL BILIRUBIN 0.5 mg/dL (0.2-1.0); TOTAL PROTEIN 7.9 g/dL (6.4-8.2)
[2019-04-03 18:41] LABS: BACTERIA,URINE FEW /HPF (0-FEW); RBC,URINE OCC /HPF (0-2); SQUAMOUS EPITHELIAL CELL,UR OCC /LPF
[2019-04-03 18:55] VITALS: BP 152/86
[2019-04-03] MEDS ORDERED: HYDR-3164 PO (18:59)
[2019-04-03] MEDS ORDERED: ONDA4TAB12 PO (18:59)
== END 2019-04-03 19:05 | disposition home or self-care (01) ==
LOC: ER 15:57
DX: R10.9 Unspecified abdominal pain (principal); R31.9 Hematuria, unspecified; J45.909 Unspecified asthma, uncomplicated; E78.00 Pure hypercholesterolemia, unspecified
CPT/HCPCS: 36415; 74176; 80053; 81001; 83690; 85025; 96374; 96375; 99285; J1885; J2270; J2405; J7030

== ENCOUNTER 2019-07-08 16:16 | Emergency (ER) | payer SELFPAY ==
[~2019-07-08] VITALS: Ht 160 cm; Wt 79.4 kg
[~2019-07-08 16:16] MED LIST changes: +ONDA4TAB12 PO
[2019-07-08 17:25] VITALS: BP 183/99
--- NOTE | 2019-07-08 18:15 | PHYS DOC ---
Past Medical History Past Medical History: Asthma Additional Past Medical Histor: scolosis Past Surgical History: Other Additional Past Surgical Histo: right wrist surgery; ovarian cyst; hernia, d & c Alcohol Use: None Drug Use: None Adult General Chief Complaint Chief Complaint: LOWER BACK PAIN OR INJURY [facility] Patient is a 54 year old female that presents with left-sided back pain that radiates down her leg has been ongoing since Saturday. The patient rates her pain as 10 out of 10 in severity and sharp. She tried heat on it at home. Denies trauma. Denies any other symptoms. Complete ROS were reviewed and found to be within normal limits, except as documented in the [facility] Allergies Allergies Allergies Coded Allergies Type Severity Reaction Last Updated Verified No Known Drug Allergies 07/30/13 No Physical Exam Physical Exam Constitutional: Well developed, well nourished, no acute distress, non-toxic appearance. [] HENT: Normocephalic, atraumatic, bilateral external ears normal, oropharynx moist, no oral exudates, nose normal. [] Eyes: PERRLA, EOMI, conjunctiva normal, no discharge. [] Skin: Warm, dry, no erythema, no rash. [] Back: L lower back tenderness in musculature with trigger points, lumbar spinal tenderness. Extremities: No tenderness, no cyanosis, no clubbing, ROM intact, no edema. [] Neurologic: Alert and oriented X 3, normal motor function, normal sensory function, no focal deficits noted. [] Psychologic: Affect normal, judgement normal, mood normal. [] Current Patient Data Vital Signs Vital Signs Date Time Temp Pulse Resp B/P (MAP) Pulse Ox O2 Delivery O2 Flow Rate FiO2 07/08/19 17:25 98.6 86 16 183/99 (127) 99 Room Air 98.6 EKG EKG [] Radiology/Procedures Radiology/Procedures [] Course & Med Decision Making Course & Med Decision Making Pertinent Labs and Imaging studies reviewed. (See chart for details) Appears to be having sciatic leg pain. Discussed the need to follow up with primary care for further imaging. A medical screening exam was performed on this patient and the patient does not appear to be having a medical emergency. Her symptoms are not of sufficient severity and within reasonable medical probability it is unlikely the absence of immediate medical attention would result in placing the health of the individual (or, with respect to a woman, the health of the woman or her unborn child) in serious jeopardy, serious impairment to bodily functions, or serious dysfunction of any bodily organ or part. If , the patient is not in labor Ellis Disclaimer Ellis Disclaimer This electronic medical record was generated, in whole or in part, using a voice recognition dictation system. Departure Departure Impression: Primary Impression: Back pain Additional Impression: Encounter for medical screening examination Disposition: HOME, SELF-CARE Condition: STABLE Referrals: NO PCP (PCP) Patient Instructions: Back Pain, Adult Additional Instructions: Thank you for visiting [facility]. We appreciate you trusting us with your care. If any additional problems come up don't hesitate to return to visit us. Please follow up with your primary care provider so they can plan additional care if needed and know about the problem that you had. If symptoms worsen come back to the Emergency Department. Any concerning symptoms that start such as chest pain, shortness of air, weakness or numbness on one side of the body, running high fevers or any other concerning symptoms return to the ER. Problem Qualifiers Primary Impression: Back pain Back pain location: low back pain Chronicity: acute Back pain laterality: left Sciatica presence: with sciatica Sciatica laterality: sciatica of left side Qualified Codes: M54.42 - Lumbago with sciatica, left side ANALILIA NEGRON APRN Jul 08, 2019 18:15
== END 2019-07-08 18:50 | disposition home or self-care (01) ==
LOC: ER 16:16
DX: M54.42 Lumbago with sciatica, left side (principal); J45.909 Unspecified asthma, uncomplicated; M41.9 Scoliosis, unspecified; Z98.890 Other specified postprocedural states
CPT/HCPCS: 99281